=== PATIENT | female | born 1940 | race Caucasian/White ===

== ENCOUNTER 2020-04-09 08:37 | Outpatient (REF) | payer MEDICARE, SELFPAY ==
[2020-04-09 12:06] LABS: Alanine Aminotransferase 15 U/L (0-31); Anion Gap 15 (12-20); Aspartate Amino Transferase 22 U/L (5-31); Blood Urea Nitrogen 19 mg/dL (9-16); Calcium 9.6 mg/dL (8.4-10.2); Carbon Dioxide 26 mmol/L (22-29); Chloride 103 mmol/L (96-108); Cholesterol 174 mg/dL; Estimated Glomerular Filt Rate 56; Glucose Fasting 99 mg/dL (60-99); HDL Cholesterol 67 mg/dL; LDL Cholesterol Calculated 88 mg/dl; Potassium 3.5 mmol/L (3.3-5.1); Sodium 140 mmol/L (135-145); Triglycerides 97 mg/dL
[2020-04-09 12:13] LABS: Free T4 (Free Thyroxine) 1.14 ng/dL (0.71-1.85); Thyroid Stimulating Hormone 2.44 uIU/mL (0.32-4.0); Vitamin D 25-OH Total 63.5 ng/mL (>30)
== END 2020-04-09 08:38 | disposition home or self-care (01) ==
LOC: HO.HMGCLDS 08:37
PROVIDERS: PCP Internal Medicine; Visit Provider Internal Medicine
DX: E78.5 Hyperlipidemia, unspecified (principal); I10 Essential (primary) hypertension; E03.9 Hypothyroidism, unspecified; Z78.0 Asymptomatic menopausal state
CPT/HCPCS: 36415; 80048; 80061; 82306; 84439; 84443; 84450; 84460

== ENCOUNTER 2020-07-17 10:30 | Outpatient (REF) | payer MEDICARE, SELFPAY ==
[2020-07-17 12:20] LABS: Thyroid Stimulating Hormone 2.41 uIU/mL (0.32-4.0); Vitamin D 25-OH Total 57.2 ng/mL (>30)
[2020-07-17 12:57] LABS: Alanine Aminotransferase 11 U/L (0-31); Anion Gap 16 (12-20); Aspartate Amino Transferase 23 U/L (5-31); Blood Urea Nitrogen 20 mg/dL (9-16); Calcium 9.4 mg/dL (8.4-10.2); Carbon Dioxide 23 mmol/L (22-29); Chloride 104 mmol/L (96-108); Cholesterol 227 mg/dL; Estimated Glomerular Filt Rate 58; Glucose Fasting 90 mg/dL (60-99); HDL Cholesterol 91 mg/dL; LDL Cholesterol Calculated 113 mg/dl; Potassium 4.2 mmol/L (3.3-5.1); Sodium 139 mmol/L (135-145); Triglycerides 118 mg/dL
== END 2020-07-17 10:31 | disposition home or self-care (01) ==
LOC: HO.HMGCLDS 10:30
PROVIDERS: PCP Internal Medicine; Visit Provider Internal Medicine
DX: E03.9 Hypothyroidism, unspecified (principal); E78.5 Hyperlipidemia, unspecified; I10 Essential (primary) hypertension; Z78.0 Asymptomatic menopausal state
CPT/HCPCS: 36415; 80048; 80061; 82306; 84443; 84450; 84460

== ENCOUNTER 2020-09-09 09:11 | Outpatient (REF) | payer MEDICARE, SELFPAY | END 2020-09-09 09:12 | disposition home or self-care (01) | LOC: HO.LAB 09:11 | PROVIDERS: Visit Provider Nurse Practitioner Family | DX: L03.90 Cellulitis, unspecified (principal) | CPT/HCPCS: 87071; 87147; 87186; 87205 ==

== ENCOUNTER 2021-01-15 09:37 | Outpatient (REF) | payer MEDICARE, SELFPAY ==
[2021-01-15 12:12] LABS: Alanine Aminotransferase 18 U/L (0-31); Anion Gap 16 (12-20); Aspartate Amino Transferase 25 U/L (5-31); Blood Urea Nitrogen 17 mg/dL (9-16); Calcium 10.1 mg/dL (8.4-10.2); Carbon Dioxide 25 mmol/L (22-29); Chloride 104 mmol/L (96-108); Cholesterol 219 mg/dL; Estimated Glomerular Filt Rate 55; Glucose Fasting 105 mg/dL (60-99); HDL Cholesterol 86 mg/dL; LDL Cholesterol Calculated 110 mg/dl; Potassium 4.1 mmol/L (3.3-5.1); Sodium 141 mmol/L (135-145); Triglycerides 116 mg/dL
[2021-01-15 12:33] LABS: Free T4 (Free Thyroxine) 1.03 ng/dL (0.71-1.85); Thyroid Stimulating Hormone 2.89 uIU/mL (0.32-4.0); Vitamin D 25-OH Total 56.7 ng/mL (>30)
== END 2021-01-15 09:38 | disposition home or self-care (01) ==
LOC: HO.HMGCLDS 09:37
PROVIDERS: PCP Internal Medicine; Visit Provider Internal Medicine
DX: E03.9 Hypothyroidism, unspecified (principal); E78.5 Hyperlipidemia, unspecified; I10 Essential (primary) hypertension; M81.0 Age-related osteoporosis without current pathological fracture; Z78.0 Asymptomatic menopausal state
CPT/HCPCS: 36415; 80048; 80061; 82306; 84439; 84443; 84450; 84460

== ENCOUNTER 2021-07-20 09:43 | Outpatient (REF) | payer MEDICARE, SELFPAY ==
[2021-07-20 11:45] LABS: MANUAL DIFF FLAG NO
[2021-07-20 11:55] LABS: Basophils Absolute Auto 0.1 X10*3/uL (0.0-0.2); Eosinophils Absolute Auto 0.4 X10*3/uL (0.0-0.4); Eosinophils Percent Auto 3.6 % (0-4); Hemoglobin 14.2 g/dl (12.0-16.0); Imm Gran Abs Auto 0.04 X10*3/uL (0.00-0.03); Imm Gran Pct Auto 0.4 % (0.0-0.4); Lymphocytes Absolute Auto 2.2 X10*3/uL (1.2-4.9); Lymphocytes Percent Auto 21.8 % (20-40); Mean Corpuscular Volume 96.8 fL (80.0-98.0); Mean Platelet Volume 10.7 fL (9.4-12.3); Monocytes Absolute Auto 0.9 X10*3/uL (0.1-1.2); Monocytes Percent Auto 9.5 % (2-11); Neutrophils Absolute Auto 6.3 x10*3/uL (2.0-8.3); Neutrophils Percent Auto 63.7 % (45-73); Platelet Count 332 X10*3/uL (160-400); Red Blood Count 4.44 X10*6/uL (4.20-5.50); Red Cell Distribution Width 14.6 % (11.0-16.0); White Blood Count 9.9 X10*3/uL (4.8-10.8)
[2021-07-20 12:45] LABS: Alanine Aminotransferase 17 U/L (0-31); Anion Gap 16 (12-20); Aspartate Amino Transferase 23 U/L (5-31); Blood Urea Nitrogen 22 mg/dL (9-16); Calcium 9.8 mg/dL (8.4-10.2); Carbon Dioxide 22 mmol/L (22-29); Chloride 106 mmol/L (96-108); Cholesterol 231 mg/dL; Estimated Glomerular Filt Rate > 60; Glucose Fasting 95 mg/dL (60-99); HDL Cholesterol 84 mg/dL; LDL Cholesterol Calculated 127 mg/dl; Potassium 4.2 mmol/L (3.3-5.1); Sodium 140 mmol/L (135-145); Triglycerides 100 mg/dL
[2021-07-20 12:48] LABS: Free T4 (Free Thyroxine) 0.99 ng/dL (0.71-1.85); Vitamin D 25-OH Total 51.7 ng/mL (>30)
== END 2021-07-20 09:44 | disposition home or self-care (01) ==
LOC: HO.HMGCLDS 09:43
PROVIDERS: PCP Internal Medicine; Visit Provider Internal Medicine
DX: M81.0 Age-related osteoporosis without current pathological fracture (principal); I10 Essential (primary) hypertension; E78.5 Hyperlipidemia, unspecified; E03.9 Hypothyroidism, unspecified; F41.1 Generalized anxiety disorder; Z78.0 Asymptomatic menopausal state
CPT/HCPCS: 36415; 80048; 80061; 82306; 84439; 84443; 84450; 84460; 85025

== ENCOUNTER 2022-07-26 09:46 | Outpatient (REF) | payer MEDICARE, SELFPAY ==
[2022-07-26 12:28] LABS: Alanine Aminotransferase 12 U/L (0-31); Anion Gap 14 (12-20); Aspartate Amino Transferase 20 U/L (5-31); Blood Urea Nitrogen 24 mg/dL (9-16); Calcium 9.8 mg/dL (8.4-10.2); Carbon Dioxide 22 mmol/L (22-29); Chloride 106 mmol/L (96-108); Cholesterol 219 mg/dL; Estimated Glomerular Filt Rate > 60; Free T4 (Free Thyroxine) 1.04 ng/dL (0.71-1.85); Glucose Fasting 98 mg/dL (60-99); HDL Cholesterol 75 mg/dL; LDL Cholesterol Calculated 118 mg/dl; Potassium 3.7 mmol/L (3.3-5.1); Sodium 138 mmol/L (135-145); Thyroid Stimulating Hormone 3.04 uIU/mL (0.32-4.0); Triglycerides 130 mg/dL; Vitamin D 25-OH Total 88.4 ng/mL (>30)
== END 2022-07-26 09:47 | disposition home or self-care (01) ==
LOC: HO.HMGCLDS 09:46
PROVIDERS: PCP Internal Medicine; Visit Provider Internal Medicine
DX: M81.0 Age-related osteoporosis without current pathological fracture (principal); F41.1 Generalized anxiety disorder; Z78.0 Asymptomatic menopausal state; I10 Essential (primary) hypertension; E78.5 Hyperlipidemia, unspecified; E03.9 Hypothyroidism, unspecified
CPT/HCPCS: 36415; 80048; 80061; 82306; 84439; 84443; 84450; 84460

== ENCOUNTER 2022-08-30 10:22 | Outpatient (REF) | payer MEDICARE, SELFPAY ==
--- NOTE | ~2022-08-30 | MM_ITS ---
EXAMINATION: BONE DENSITOMETRY CLINICAL INDICATION: Age-related osteoporosis without current pathological fracture. COMPARISON: Baseline BD dated 04/26/2018. TECHNIQUE: Using a Aerospike DXA System (software version: 13.1) manufactured by [employer], dual-energy x-ray absorptiometry was performed of the lumbar spine and left hip. The images are of good technical quality. Summary results are attached. FINDINGS: AP SPINE L1-L4: Current: BMD 0.965 g/cm2, Z-score 0.3, T-score -1.8, osteopenia, 3.1% increase from baseline (<5% change is not significant). Baseline: BMD 0.936 g/cm2. LEFT FEMUR, NECK: Current: BMD 0.703 g/cm2, Z-score -0.1, T-score -2.4, osteopenia. Baseline: BMD 0.689 g/cm2. LEFT FEMUR, TOTAL: Current: BMD 0.765 g/cm2, Z-score 0.3, T-score -1.9, osteopenia, 3.1% increase from baseline (<5% change is not significant). Baseline: BMD 0.742 g/cm2. IDENTIFIED RISK FACTORS: Early menopause, secondary osteoporosis, osteoporosis. HISTORY OF FRACTURE: None listed. MEDICATIONS: Calcium supplements or multivitamin, vitamin D, ERT/SERMS. MM/XR DEXA axial skeleton IMPRESSION: 1. DIAGNOSIS: Osteopenia based on the lowest T-score value of -2.4 in the femoral neck applying World Health Organization criteria. 2. 10-YEAR FRACTURE RISK PREDICTION, FRAX: Not performed in this patient on estrogen or bone building treatments. 3. Treatment Recommendations: NOF guidelines recommend consideration for treatment in postmenopausal women and men age 50 and older presenting with the following: -A hip or vertebral (clinical or morphometric) fracture. -T-score less than or equal to -2.5 at the femoral neck or spine after appropriate evaluation to exclude secondary causes. -Low bone mass at the hip or spine and a 10-year fracture probability by FRAX of greater than or equal to 3% for hip fracture or greater than or equal to 20% for major osteoporotic fracture based on the [place] adapted WHO algorithm. 4. Other Recommendations: All treatment decisions require clinical judgment and consideration of individual patient factors, including patient preferences, comorbidities, previous drug use, risk factors not captured in the FRAX model (e.g. frailty, falls, vitamin D deficiency, increased bone turnover, interval significant decline in bone density) and possible under or overestimation of fracture risk by FRAX. Additional medical evaluation for secondary cause of low bone mineral density may be appropriate. FUTURE SCAN RECOMMENDATION: People with diagnosed cases of osteoporosis or at high risk for fracture should have regular bone mineral density tests. For patients eligible for Medicare, routine testing is allowed once every 2 years. The testing frequency can be increased to one year for patients who have rapidly progressing disease, those who are receiving or discontinuing medical therapy to restore bone mass, or have additional risk factors.
== END 2022-08-30 10:23 | disposition home or self-care (01) ==
LOC: HO.MAMMO 10:22
PROVIDERS: PCP Internal Medicine; Visit Provider Internal Medicine
DX: M81.0 Age-related osteoporosis without current pathological fracture (principal)
CPT/HCPCS: 77080

== ENCOUNTER 2023-01-05 09:08 | Outpatient (REF) | payer MEDICARE, SELFPAY ==
[2023-01-05 12:31] LABS: Alanine Aminotransferase 14 U/L (0-31); Anion Gap 16 (12-20); Aspartate Amino Transferase 23 U/L (5-31); Blood Urea Nitrogen 18 mg/dL (9-16); Calcium 9.8 mg/dL (8.4-10.2); Carbon Dioxide 24 mmol/L (22-29); Chloride 104 mmol/L (96-108); Cholesterol 220 mg/dL (<200); Estimated Glomerular Filt Rate > 60; Glucose Fasting 99 mg/dL (60-99); HDL Cholesterol 76 mg/dL (>40); LDL Cholesterol Calculated 116 mg/dL (<100); Potassium 3.9 mmol/L (3.3-5.1); Sodium 140 mmol/L (135-145); Triglycerides 143 mg/dL (<150)
[2023-01-05 12:53] LABS: Thyroid Stimulating Hormone 2.54 uIU/mL (0.32-4.0); Vitamin D 25-OH Total 77.1 ng/mL (>30)
== END 2023-01-05 09:09 | disposition home or self-care (01) ==
LOC: HO.HMGCLDS 09:08
PROVIDERS: PCP Internal Medicine; Visit Provider Internal Medicine
DX: M81.0 Age-related osteoporosis without current pathological fracture (principal); I10 Essential (primary) hypertension; E78.5 Hyperlipidemia, unspecified; E03.9 Hypothyroidism, unspecified; Z78.0 Asymptomatic menopausal state
CPT/HCPCS: 36415; 80048; 80061; 82306; 84443; 84450; 84460

== ENCOUNTER 2023-01-09 11:14 | Outpatient (AMB) | payer MEDICARE, SELFPAY ==
[2023-01-09 11:32] VITALS: BP 120/78; PULSE 95; O2SAT 98; BMI 23.4
--- NOTE | 2023-01-09 11:32 | MHC.PC.OV ---
Vital Signs 01/09/23 11:32 Height 5 ft 2 in Weight 128 lb 2 oz BMI 23.4 BP 120/78 Blood Pressure Location Lt brachial Position Sitting Pulse 95 Pulse Source Pulse Oximeter Pulse Oximetry (%) 98 Oxygen Delivery Method Room Air Intake Visit Reasons: 6 month follow up Intake Note: Pt is here to follow up for her lab results Allergies Corticosteroids (Glucocorticoids) Adverse Reaction (Verified 01/09/23 11:59) Rash bactrim Adverse Reaction (Uncoded 01/09/23 11:59) Rash Medication List - Last Reconciled 01/09/23 by Bettina Mckinney MD cholecalciferol (vitamin D3) 50 mcg PO DAILY diltiazem HCl 60 mg PO QID ketoconazole 2% 1 appl topical DAILY levothyroxine 25 mcg PO DAILY raloxifene 60 mg PO DAILY rosuvastatin 10 mg PO DAILY triamterene-hydrochlorothiazid 37.5-25 mg 1 tab PO QAM 90 days Tobacco use date assessed: 01/09/23 Fall risk assessment: No Falls in past year Last assessed Fall Risk: 01/09/23 Dental Screening Dental Screen Date: 01/09/23 Did you have a dental visit in the last 12 months?: Yes Did you have a dental problem in the last 6 months where you did not have access to dental care?: No Was dental information given to patient?: Patient has dentist HPI 6 month follow up HPI Details 82-year-old lady here today for follow-up on her lipids and hypothyroidism. Has been compliant with taking her medications and currently on rosuvastatin 10 mg daily and levothyroxine 25 mcg daily. Blood pressure stable controlled on diltiazem 60 mg 4 times a day and triamterene hydrochlorothiazide taken 1 day. COUNT INCLUDES THE [facility] Medical History Osteoporosis Generalized anxiety disorder Menopause Essential hypertension Dyslipidemia Acquired hypothyroidism Surgical History No pertinent past surgical history Social History Housing: House Alcohol intake: current Patient Tobacco Use Status: Never used Tobacco e-Cigarette/Vaping Use: Never Used Second Hand Smoke Exposure: No service: No Current occupational status: retired Cognitive needs: No Hearing needs: No Vision needs: No Questionnaire Thrive Questionnaire Date Thrive assessed: 07/27/21 ANGELIA-7 AMB Questionnaire ANGELIA-7 Date ANGELIA - 7 assessed: 07/27/21 Source: Developed by Drs. Alcides Keys, Rajani Patterson, Behzad Alvarado and colleagues, with an educational ernesto from [employer]. Review of Systems Const Denies body aches, Denies fatigue and Denies headache(s) Eyes Denies change in vision ENT Denies dizziness, Denies headache(s) and Denies nasal congestion Card Denies chest pain, Denies lightheadedness, Denies palpitations and Denies dyspnea Resp Denies chest congestion, Denies cough, Denies dyspnea and Denies wheezing GI Denies abdominal pain, Denies change in bowel habits and Denies heartburn Denies urinary frequency, Denies dysuria and Denies urinary urgency Musc Reports no additional complaints Skin/Breast Reports rash (Itchy rash in right forarm, appeared after receiving RSV vaccine) Neuro Denies dizziness and Denies headache(s) Psych Reports no additional complaints Endo Denies fatigue, Denies polydipsia, Denies polyuria and Denies palpitations Brigido/Lymph Denies easy bruising Aller/Immun Denies seasonal rhinorrhea and Denies wheezing Physical exam (Primary Care) Vital Signs: Last Vital Signs Pulse 95 01/09/23 11:32 BP 120/78 01/09/23 11:32 Pulse Ox 98 01/09/23 11:32 Oxygen Delivery Method Room Air 01/09/23 11:32 BMI result Body Mass Index 23.4 Tobacco/Smoking Status: Tobacco use Status Tobacco use date assessed 01/09/23 01/09/23 11:39 Patient Tobacco Use Status Never used Tobacco 01/09/23 11:33 e-Cigarette/Vaping Use Never Used 01/09/23 11:33 Thrive Assessment: Date of Thrive Assessment Date Thrive assessed 07/27/21 01/09/23 11:33 Const General: cooperative, comfortable and no acute distress Orientation/consciousness: patient oriented x3 HENMT Ears: external ears normal General nose exam: Normal external nose present Mouth: Normal oral and palatal mucosa present, oropharynx normal and moist mucous membranes Eyes General: appearance normal, both eyes and all related structures Neck Neck: Yes full ROM, Yes no lymphadenopathy and Yes supple Resp Effort & Inspection: normal respiratory effort and able to speak in complete sentences Auscultation: clear to auscultation bilaterally Cardio Rate: regular rate Rhythm: regular rhythm Heart sounds: S1 normal heart sound present and S2 normal heart sound present GI Inspection: Yes normal to inspection Palpation (GI): Soft to palpation, nontender and no masses Auscultation: normal bowel sounds Skin Other: Slightly raised erythematous patch right forearm Neuro General: patient oriented x3, gait normal, tone normal, moves all extremities, Normal light touch and pain sensation and no focal motor deficits Cognition (Neuro): normal cognition Gait exam (Neuro): Normal gait present Motor exam (neuro): 5/5 motor strength present throughout Extrem General: Yes full ROM, Yes no joint enlargement, Yes no pedal edema and Yes normal gait Results Reviewed Results Reviewed: ENTERED: 01/05/23 HODA KIM: ORDERED: Met Prof Fast, AST, ALT, Lipid Panel, Vitamin D 25-OH, TSH Test Result Flag Reference Site Sodium 140 135-145 mmol/L Potassium 3.9 3.3-5.1 mmol/L CL 104 96-108 mmol/L CO2 24 22-29 mmol/L Gap 16 12-20 BUN 18 H 9-16 mg/dL Creat 0.85 0.5-1.4 mg/dL EGFR > 60 NOTE: For -[place] individuals, multiply the result by 1.210. Chronic Kidney Disease: Estimated GFR < 60 mL/min/1.73m2 Severe Kidney Disease: Estimated GFR < 15 mL/min/1.73m2 FBS 99 60-99 mg/dL CA 9.8 8.4-10.2 mg/dL AST (GOT) 23 5-31 U/L ALT (GPT) 14 0-31 U/L Triglyceride 143 <150 mg/dL Desirable Triglyceride: less than 150 mg/dL Borderline High Triglyceride 150-199 mg/dL High Triglyceride: 200-499 mg/dL Very High Triglyceride: greater than or equal to 5OO mg/dL Cholesterol 220 H <200 mg/dL Desirable Cholesterol: less than 200 mg/dL Borderline High Cholesterol: 200-239 mg/dL High Cholesterol: greater than 239 mg/dL LDL Calculated 116 H <100 mg/dL Desirable LDL: less than 100 mg/dL Near Optimal/Above Optimal LDL: 110-129 mg/dL Borderline High LDL: 130-159 mg/dL High LDL: 160-189 mg/dL Very High LDL: greater than or equal to 190 mg/dL HDL 76 >40 mg/dL Desirable HDL: greater than 40 mg/dL Note: This HDL assay may give artificially low results in patients with liver disease. Vit D 25-OH Tot 77.1 >30 ng/mL Health Based Reference Values* < 20 ng/mL Deficient 20-30 ng/mL Insufficient > 30 ng/mL Sufficient *Joy COLBERT. N Engl J Med. 2007;[id number] Care must be taken in interpreting Vitamin D results from different laboratories and methodologies. Published data demonstrated that results from patients undergoing hemodialysis may show a negative bias when tested with various automated 25-OH vitamin D assays when compared to LC-MS/MS. When testing samples from patients whose predominant form of Vitamin D is Vitamin D2, such as patients receiving Vitamin D2 supplementation, results that are subtherapeutic should be confirmed with another method such as LC-MS/MS. TSH 3rd Gen. 2.54 0.32-4.0 uIU/mL TSH 3rd Generation ([facility]) Assessment and Plan Assessment & Plan (1) Pruritic erythematous rash: Code(s): L29.8 - Other pruritus Plan: Mainly in right forearm. Patient's states that it began after she received her RSV vaccine gold Tilley cream which affords only temporary relief. Advised to use CeraVe cream, which she has at home apply liberally to affected area after showering and at bedtime. She may also try using [id number] diphenhydramine cream to help with the itching there (2) Generalized anxiety disorder: Code(s): F41.1 - Generalized anxiety disorder Plan: Stable controlled on diazepam, takes as needed (3) Essential hypertension: Code(s): I10 - Essential (primary) hypertension Plan: Blood pressure at goal of less than 130/80. Continue with current medication. Reinforced importance of following a low sodium diet, getting regular exercise, and lowering stress levels. (4) Dyslipidemia: Code(s): E78.5 - Hyperlipidemia, unspecified Plan: Fasting lipids are within normal limits, continued on rosuvastatin 10 mg daily (5) Acquired hypothyroidism: Code(s): E03.9 - Hypothyroidism, unspecified Plan: Thyroid levels are within normal limits, continue on levothyroxine 25 mcg daily in a.m. Medications: New diazepam (Valium) 2 mg PO DAILY PRN 20 tabs 0RF anxiey attack Coding Level of Care Code Est Pt Level 4 (71482) Diagnoses Pruritic erythematous rash L29.8 Generalized anxiety disorder F41.1 Essential hypertension I10 Dyslipidemia E78.5 Acquired hypothyroidism E03.9
== END 2023-01-09 12:15 | disposition home or self-care (01) ==
PROVIDERS: PCP Internal Medicine; Visit Provider Internal Medicine
DX: L29.8 Other pruritus (principal); F41.1 Generalized anxiety disorder; I10 Essential (primary) hypertension; E78.5 Hyperlipidemia, unspecified; E03.9 Hypothyroidism, unspecified
CPT/HCPCS: 99214

== ENCOUNTER 2023-10-16 09:03 | Outpatient (REF) | payer MEDICARE, SELFPAY ==
[2023-10-16 11:17] LABS: Alanine Aminotransferase 16 U/L (0-31); Anion Gap 15 (12-20); Aspartate Amino Transferase 20 U/L (5-31); Blood Urea Nitrogen 23 mg/dL (9-16); Calcium 10.3 mg/dL (8.4-10.2); Carbon Dioxide 25 mmol/L (22-29); Chloride 102 mmol/L (96-108); Cholesterol 213 mg/dL (<200); Estimated Glomerular Filt Rate > 60; Free T4 (Free Thyroxine) 0.97 ng/dL (0.71-1.85); Glucose Fasting 102 mg/dL (60-99); HDL Cholesterol 85 mg/dL (>40); LDL Cholesterol Calculated 109 mg/dL (<100); Potassium 3.6 mmol/L (3.3-5.1); Sodium 138 mmol/L (135-145); Thyroid Stimulating Hormone 2.37 uIU/mL (0.32-4.0); Triglycerides 97 mg/dL (<150); Vitamin D 25-OH Total 74.9 ng/mL (>30)
== END 2023-10-16 09:04 | disposition home or self-care (01) ==
LOC: HO.HMGCLDS 09:03
PROVIDERS: PCP Internal Medicine; Visit Provider Internal Medicine
DX: M81.0 Age-related osteoporosis without current pathological fracture (principal); F41.1 Generalized anxiety disorder; Z78.0 Asymptomatic menopausal state; I10 Essential (primary) hypertension; E78.5 Hyperlipidemia, unspecified; E03.9 Hypothyroidism, unspecified
CPT/HCPCS: 36415; 80048; 80061; 82306; 84439; 84443; 84450; 84460

== ENCOUNTER 2023-10-19 08:40 | Outpatient (AMB) | payer MEDICARE, SELFPAY ==
--- NOTE | 2023-10-19 08:44 | MHC.PC.OV ---
Vital Signs 10/19/23 08:50 Height 5 ft 2 in Weight 116 lb BMI 21.2 BP 112/70 Blood Pressure Location Lt brachial Position Sitting Pulse 82 Pulse Source Pulse Oximeter Pulse Oximetry (%) 98 Oxygen Delivery Method Room Air Intake Visit Reasons: PE Intake Note: Pt is here today for her PE: last mammogram 08/30/22 Allergies Corticosteroids (Glucocorticoids) Adverse Reaction (Verified 10/22/23 16:27) Rash bactrim Adverse Reaction (Uncoded 10/22/23 16:27) Rash Medication List - Last Reconciled 10/22/23 by Bettina Mckinney MD cholecalciferol (vitamin D3) 50 mcg PO DAILY diazepam (Valium) 2 mg PO DAILY PRN diltiazem HCl 60 mg PO QID levothyroxine 25 mcg PO DAILY raloxifene 60 mg PO DAILY rosuvastatin 10 mg PO DAILY triamterene-hydrochlorothiazid 37.5-25 mg 1 tab PO QAM 90 days Tobacco use date assessed: 10/19/23 Fall risk assessment: No Falls in past year Last assessed Fall Risk: 10/19/23 Dental Screening Dental Screen Date: 10/19/23 Did you have a dental visit in the last 12 months?: Yes Did you have a dental problem in the last 6 months where you did not have access to dental care?: No Was dental information given to patient?: Patient has dentist HPI PE HPI Details 82-year-old lady with acquired hypothyroidism, hyperlipidemia, hypertension and osteoporosis with generalized anxiety disorder, here today for her physical exam. Blood pressure has been stable and controlled on diltiazem 60 mg 1 tablet 4 times a day in addition to Maxzide taken 1 daily in a.m.. She has been taking raloxifene 60 mg daily for her osteoporosis, no history of fractures. Last bone density done 08/25/2022 showed mild increase in her bone density in femoral neck, and lumbar spine She no longer gets screening mammograms for her cervical cancer screening and does not want to get a colonoscopy procedure or any further colon cancer testing. She had recent fasting labs done which showed normal electrolytes and renal function, with lipids within normal limits as well as thyroid levels and mildly elevated fasting glucose. Complains of having intermittent episodes of anxiety attacks, for which he takes lorazepam 1-2 mg as needed requesting a refill [facility] Medical History Osteoporosis Generalized anxiety disorder Menopause Essential hypertension Dyslipidemia Acquired hypothyroidism Surgical History No pertinent past surgical history Social History Housing: House Alcohol intake: current Patient Tobacco Use Status: Never used Tobacco e-Cigarette/Vaping Use: Never Used Second Hand Smoke Exposure: No service: No Current occupational status: retired Cognitive needs: No Hearing needs: No Vision needs: No Questionnaire PHQ-9 Over the last 2 weeks, how often have you been bothered by any of the following problems? 1. Little interest or pleasure in doing things: not at all 2. Feeling down, depressed, or hopeless: not at all 3. Trouble falling or staying asleep, or sleeping too much: not at all 4. Feeling tired or having little energy: not at all 5. Poor appetite or overeating: not at all 6. Feeling bad about yourself - or that you are a failure or have let yourself or your family down: not at all 7. Trouble concentrating on things, such as reading the newspaper or watching television: not at all 8. Moving or speaking so slowly that other people could have noticed. Or the opposite - being so fidgety or restless that you have been moving around a lot more than usual: not at all 9. Thoughts that you would be better off or of hurting yourself in some way: not at all Total score: 0 Depression Screening Interpretation: Negative Depression Screening Done: Yes 70829 - PHQ-9 Billing: Yes Source: Developed by Drs. Alcides Keys, Rajani Patterson, Behzad Alvarado and colleagues, with an educational ernesto from [employer]. Thrive Questionnaire Date Thrive assessed: 10/19/23 I am a: Patient What is your living situation today?: I have a steady place to live Within the past 12 months, did the food you bought not last and you didn't have the money to get more?: Never true Within the past 12 months, did you worry whether your food would run out before you got money to buy more?: Never true Do you have trouble paying for medicines?: No Do you have trouble getting transportation to medical appointments?: No Do you have trouble paying your heating and electricity bill?: No Do you have trouble taking care of your child, family member or friend?: No Do you have trouble with day-to-day activities such as bathing, preparing meals, shopping, managing finances, etc.?: No Are you currently unemployed and looking for a job?: No Are you interested in more education?: No Please select the resources that you would like help with: None Currently or been in a relationship where the following occur: No concerns reported THRIVE Score: 0 AUDIT C Alcohol Use Questionnaire (AUDIT-C) 1. How often do you have a drink containing alcohol?: Never Total Score: 0 ANGELIA-7 AMB Questionnaire ANGELIA-7 Date ANGELIA - 7 assessed: 10/19/23 Feeling nervous, anxious, or on edge: 1 = Several days Not being able to stop or control worryin = Several days Worrying too much about different things: 1 = Several days Trouble relaxin = Several days Being so restless that it is hard to sit still: 0 = Not at all Becoming easily annoyed or irritable: 0 = Not at all Feeling afraid as if something awful might happen: 0 = Not at all Total ANGELIA-7 score (0-4 normal; 5-9 mild; 10-14 moderate; 15-21 severe): 4 Source: Developed by Drs. Alcides Keys, Rajani Patterson, Behzad Alvarado and colleagues, with an educational ernesto from [employer]. ANGELIA-7 Assessment Billing ANGELIA-7 Assessment Tool: ANGELIA-7 Assessment 53832 Review of Systems Const Denies body aches, Denies fatigue and Denies headache(s) Eyes Denies change in vision ENT Denies dizziness, Denies headache(s) and Denies nasal congestion Card Denies chest pain, Denies lightheadedness, Denies palpitations and Denies dyspnea Resp Denies chest congestion, Denies cough, Denies dyspnea and Denies wheezing GI Denies abdominal pain, Denies change in bowel habits and Denies heartburn Denies urinary frequency, Denies dysuria and Denies urinary urgency Musc Reports no additional complaints Skin/Breast Denies lesions and Denies rash Neuro Denies dizziness and Denies headache(s) Psych Reports as per HPI Endo Denies fatigue, Denies polydipsia, Denies polyuria and Denies palpitations Brigido/Lymph Denies easy bruising Aller/Immun Denies seasonal rhinorrhea and Denies wheezing Physical exam (Primary Care) Vital Signs: Last Vital Signs Pulse 82 10/19/23 08:50 BP 112/70 10/19/23 08:50 Pulse Ox 98 10/19/23 08:50 Oxygen Delivery Method Room Air 10/19/23 08:50 BMI result Body Mass Index 21.2 Tobacco/Smoking Status: Tobacco use Status Tobacco use date assessed 10/19/23 10/19/23 08:52 Patient Tobacco Use Status Never used Tobacco 10/19/23 08:46 e-Cigarette/Vaping Use Never Used 10/19/23 08:46 PHQ-9: PHQ-9 Score PHQ-9: Total score 0 10/19/23 09:29 Depression Screening Interpretation: Negative Thrive Assessment: Date of Thrive Assessment Date Thrive assessed 07/27/21 10/19/23 08:46 Currently or been in a relationship where the following occur: No concerns reported Const General: cooperative, comfortable and no acute distress Orientation/consciousness: patient oriented x3 HENMT Ears: external ears normal General nose exam: Normal external nose present Mouth: Normal oral and palatal mucosa present, oropharynx normal and moist mucous membranes Eyes General: appearance normal, both eyes and all related structures Neck Neck: Yes full ROM, Yes no lymphadenopathy and Yes supple Resp Effort & Inspection: normal respiratory effort and able to speak in complete sentences Auscultation: clear to auscultation bilaterally Cardio Rate: regular rate Rhythm: regular rhythm Heart sounds: S1 normal heart sound present and S2 normal heart sound present GI Inspection: Yes normal to inspection Palpation (GI): Soft to palpation, nontender and no masses Auscultation: normal bowel sounds Back/Spine/Pelvis Back: No back tenderness Skin Other: General skin exam: no rashes or lesions noted Neuro General: patient oriented x3, gait normal, tone normal, moves all extremities, Normal light touch and pain sensation and no focal motor deficits Cognition (Neuro): normal cognition Gait exam (Neuro): Normal gait present Motor exam (neuro): 5/5 motor strength present throughout Extrem General: Yes full ROM, Yes no joint enlargement, Yes no pedal edema and Yes normal gait Psych Appearance: grossly normal and well kempt Mental Status: mental status grossly normal Speech and movement: Normal speech and movement present Affect: normal affect Attitude: cooperative Results Reviewed Results Reviewed: jolynn: Betzaida Oliveira Age/Sex: 82/F : 1940 [address]#: [id number] Unit#: [id number] Attend Dr: Bettina Mckinney MD Re10/16/23 Status: DEP REF Location: [facility] Disch: SPEC : [id number] AVIVA: 10/16/23 STATUS: COMP REQ : [id number] RECD: 10/16/[address]: Bettina Mckinney MD COMP: 10/16/23 ENTERED: 10/16/[address] [facility] [address]: ORDERED: Met Prof Fast, AST, ALT, Lipid Panel, Vitamin D 25-OH, Free T4, TSH Test Result Flag Reference Sodium 138 135-145 mmol/L Potassium 3.6 3.3-5.1 mmol/L CL 102 96-108 mmol/L CO2 25 22-29 mmol/L Gap 15 12-20 BUN 23 H 9-16 mg/dL Creat 0.82 0.5-1.4 mg/dL EGFR > 60 NOTE: For -[place]ian individuals, multiply the result by 1.210. Chronic Kidney Disease: Estimated GFR < 60 mL/min/1.73m2 Severe Kidney Disease: Estimated GFR < 15 mL/min/1.73m2 FBS 102 H 60-99 mg/dL A fasting glucose from 100-125 mg/dl is considered impaired (pre-diabetes). CA 10.3 H 8.4-10.2 mg/dL AST (GOT) 20 5-31 U/L ALT (GPT) 16 0-31 U/L Triglyceride 97 <150 mg/dL Desirable Triglyceride: less than 150 mg/dL Borderline High Triglyceride 150-199 mg/dL High Triglyceride: 200-499 mg/dL Very High Triglyceride: greater than or equal to 5OO mg/dL Cholesterol 213 H <200 mg/dL Desirable Cholesterol: less than 200 mg/dL Borderline High Cholesterol: 200-239 mg/dL High Cholesterol: greater than 239 mg/dL LDL Calculated 109 H <100 mg/dL Desirable LDL: less than 100 mg/dL Near Optimal/Above Optimal LDL: 110-129 mg/dL Borderline High LDL: 130-159 mg/dL High LDL: 160-189 mg/dL Very High LDL: greater than or equal to 190 mg/dL HDL 85 >40 mg/dL Desirable HDL: greater than 40 mg/dL Note: This HDL assay may give artificially low results in patients with liver disease. Vit D 25-OH Tot 74.9 >30 ng/mL Health Based Reference Values* < 20 ng/mL Deficient 20-30 ng/mL Insufficient > 30 ng/mL Sufficient *Joy COLBERT. N Engl J Med. 2007;357:266-280 Care must be taken in interpreting Vitamin D results from different laboratories and methodologies. Published data demonstrated that results from patients undergoing hemodialysis may show a negative bias when tested with various automated 25-OH vitamin D assays when compared to LC-MS/MS. When testing samples from patients whose predominant form of Vitamin D is Vitamin D2, such as patients receiving Vitamin D2 supplementation, results that are subtherapeutic should be confirmed with another method such as LC-MS/MS. Free T4 0.97 0.71-1.85 ng/dL TSH 3rd Gen. 2.37 0.32-4.0 uIU/mL TSH 3rd Generation ([facility]) END OF REPORT Assessment and Plan Assessment & Plan (1) Annual visit for general adult medical examination with abnormal findings: Code(s): Z00.01 - Encounter for general adult medical examination with abnormal findings Plan: Reviewed recent fasting lab results with patient. Continue with regular dental visit every 6 months and regular eye exams, at least every 2 years. Take adequate calcium in diet and vitamin-D 3 at 2000 IU per cap once a day, in addition to weight-bearing exercises to help maintain good muscle tone and weight control. Up-to-date with her bone density scan.. Patient states she will be getting her COVID booster and her flu shot but does not want to get any pneumonia vaccination RSV or shingles vaccine. (2) Osteoporosis: Code(s): M81.0 - Age-related osteoporosis without current pathological fracture (3) Generalized anxiety disorder: Code(s): F41.1 - Generalized anxiety disorder Plan: Refill prescription sent for diazepam 2 mg per tablet, take 1 tablet as needed only for acute anxiety attacks. (4) Essential hypertension: Code(s): I10 - Essential (primary) hypertension Plan: Blood pressure at goal of less than 130/80. Continue with current medication. Reinforced importance of following a low sodium diet, getting regular exercise, and lowering stress levels. (5) Dyslipidemia: Code(s): E78.5 - Hyperlipidemia, unspecified Plan: Reviewed recent fasting lipid profile with patient with levels within normal limit . Continue rosuvastatin 10 mg daily , in addition to adherence to low-cholesterol diet and regular exercise, at least 30 minutes 3 to 4 times a week. Advised patient to make healthy food choices, eat more fruits, vegetables, whole grains, wild caught fish and low-fat dairy. Limit amount of meat and fried or fatty food products, as well as processed foods and fast foods. (6) Acquired hypothyroidism: Code(s): E03.9 - Hypothyroidism, unspecified Plan: Thyroid levels are within normal limits, continue with levothyroxine 25 mcg daily in a.m. Medications: Refilled diazepam (Valium) 2 mg PO DAILY PRN 30 tabs 0RF anxiey attack Coding Level of Care Code Est Pt Prev Care >65y(23698) Diagnoses Annual visit for general adult medical examination with abnormal findings Z00.01 Osteoporosis M81.0 Generalized anxiety disorder F41.1 Essential hypertension I10 Dyslipidemia E78.5 Acquired hypothyroidism E03.9 Additional Codes ANGELIA-7 Assessment Billing - ANGELIA-7 Assessment Tool: ANGELIA-7 Assessment 72416 ([id number])
[2023-10-19 08:50] VITALS: BP 112/70; PULSE 82; O2SAT 98; BMI 21.2
== END 2023-10-19 09:34 | disposition home or self-care (01) ==
PROVIDERS: PCP Internal Medicine; Visit Provider Internal Medicine
DX: Z00.00 Encounter for general adult medical examination without abnormal findings (principal); M81.0 Age-related osteoporosis without current pathological fracture; F41.1 Generalized anxiety disorder; I10 Essential (primary) hypertension; E78.5 Hyperlipidemia, unspecified; E03.9 Hypothyroidism, unspecified
CPT/HCPCS: 99397

== ENCOUNTER 2023-12-19 10:24 | Outpatient (AMB) | payer MEDICARE, SELFPAY ==
--- NOTE | 2023-12-19 11:42 | AM.OFFWIN_ITS ---
Intake Vital Signs 12/19/23 11:43 Height 5 ft 2 in Weight 115 lb BMI 21.0 BP 124/80 Blood Pressure Location Lt brachial Position Sitting Pulse 88 Pulse Source Pulse Oximeter Pulse Oximetry (%) 98 Oxygen Delivery Method Room Air Intake Visit Reasons: EP Mid upper back pain Intake Note: Patient here for mid back pain that has been present for about 2 weeks now. Patient Tobacco Use Status: Never used Tobacco Allergies Corticosteroids (Glucocorticoids) Adverse Reaction (Verified 12/19/23 11:44) Rash bactrim Adverse Reaction (Uncoded 12/19/23 11:44) Rash Do you need a note to return to daycare/school/sports/work: No HPI HPI Comments History of Present Illness Details 83 y/o female patient who presents to [facility] walk [facility] clinic with c/o upper left Thoracic back region pain x 3 weeks now. She was lifting a Glossary bag from the ground and felt a sharp/pop pain. Denies falling on the ground. [facility] Medical History Osteoporosis Generalized anxiety disorder Menopause Essential hypertension Dyslipidemia Acquired hypothyroidism Surgical History No pertinent past surgical history Social History Housing: House Alcohol intake: current Patient Tobacco Use Status: Never used Tobacco e-Cigarette/Vaping Use: Never Used Second Hand Smoke Exposure: No service: No Current occupational status: retired Cognitive needs: No Hearing needs: No Vision needs: No Review of Systems Const All systems reviewed & are unremarkable except as noted in HPI and below Physical Exam Vital Signs: Last Vital Signs Pulse 88 12/19/23 11:43 BP 124/80 12/19/23 11:43 Pulse Ox 98 12/19/23 11:43 Oxygen Delivery Method Room Air 12/19/23 11:43 BMI result Body Mass Index 21.0 Const General: cooperative and no acute distress Orientation/consciousness: patient oriented x3 General: Yes no CVA tenderness Back/Spine/Pelvis Back: no CVA tenderness Cervical Spine: cervical ROM normal Thoracic/Lumbar Spine: thoracic and lumbar spine normal to inspection, thoraco- lumbar ROM normal, paraspinal muscle tenderness, thoraco-lumbar spasm and thoracic spinal tenderness Neuro General: patient oriented x3, gait normal and moves all extremities Psych Speech and movement: Normal speech and movement present Assessment & Plan Assessment & Plan (1) Upper back pain: Code(s): M54.9 - Dorsalgia, unspecified Plan: Ordered Acetaminophen 2 tabs of 650 mg in the AM' Ordered Lidocaine Patch IceHot Small dose of Flexeril 5 mg at Bedtime. Medications: New acetaminophen ER 1,300 mg (2 x 650 mg) PO Q12H PRN 60 tabs 0RF pain (scale score 4-6) M54.9 - Dorsalgia, unspecified cyclobenzaprine 5 mg PO BEDTIME 10 tabs 0RF M54.9 - Dorsalgia, unspecified lidocaine 5% leave on most painful area for up to 12 hrs 1 patch topical DAILY 30 ea 1RF M54.9 - Dorsalgia, unspecified Coding Level of Care Code Est Pt Level 3 (20292) Diagnoses Upper back pain M54.9 Time Spent (min) 15
[2023-12-19 11:43] VITALS: BP 124/80; PULSE 88; O2SAT 98; BMI 21.0
== END 2023-12-19 12:07 | disposition home or self-care (01) ==
PROVIDERS: PCP Internal Medicine; Visit Provider Nurse Practitioner Family
DX: M54.9 Dorsalgia, unspecified (principal)

== ENCOUNTER → 2023-12-19 10:24 | Outpatient (BNVA) | payer MEDICARE, SELFPAY | PROVIDERS: PCP Internal Medicine; Visit Provider Nurse Practitioner Family | DX: M54.9 Dorsalgia, unspecified (principal) | CPT/HCPCS: 99212 ==

== ENCOUNTER 2024-11-01 09:18 | Outpatient (REF) | payer MEDICARE, SELFPAY ==
[2024-11-01 11:37] LABS: Alanine Aminotransferase 21 U/L (0-31); Anion Gap 11 (12-20); Aspartate Amino Transferase 28 U/L (5-31); Blood Urea Nitrogen 16 mg/dL (9-16); Calcium 9.6 mg/dL (8.4-10.2); Carbon Dioxide 28 mmol/L (22-29); Chloride 104 mmol/L (96-108); Cholesterol 203 mg/dL (<200); Estimated Glomerular Filt Rate > 60; Free T4 (Free Thyroxine) 1.12 ng/dL (0.71-1.85); HDL Cholesterol 84 mg/dL (>40); Potassium 3.9 mmol/L (3.3-5.1); Sodium 139 mmol/L (135-145); Thyroid Stimulating Hormone 1.68 uIU/mL (0.32-4.0); Triglycerides 92 mg/dL (<150)
[2024-11-04 17:38] LABS: Calcium, Ionized 5.3 mg/dL (4.7-5.5)
== END 2024-11-01 09:19 | disposition home or self-care (01) ==
LOC: HO.HMGCLDS 09:18
PROVIDERS: PCP Internal Medicine; Visit Provider Internal Medicine
DX: I10 Essential (primary) hypertension (principal); M81.0 Age-related osteoporosis without current pathological fracture; F41.1 Generalized anxiety disorder; E78.5 Hyperlipidemia, unspecified; E03.9 Hypothyroidism, unspecified; E83.52 Hypercalcemia; Z78.0 Asymptomatic menopausal state
CPT/HCPCS: 36415; 80048; 80061; 82330; 84439; 84443; 84450; 84460

== ENCOUNTER 2024-11-05 08:38 | Outpatient (AMB) | payer MEDICARE, SELFPAY ==
[2024-11-05 09:28] VITALS: BP 122/64; PULSE 78; O2SAT 97; BMI 20.1
--- NOTE | 2024-11-05 09:28 | MHC.PC.OV ---
Vital Signs 11/05/24 09:28 Height 5 ft 2 in Weight 110 lb BMI 20.1 BP 122/64 Blood Pressure Location Lt brachial Position Sitting Pulse 78 Pulse Source Pulse Oximeter Pulse Oximetry (%) 97 Oxygen Delivery Method Room Air Intake Visit Reasons: Annual PE - see comments Allergies Corticosteroids (Glucocorticoids) Adverse Reaction (Verified 11/05/24 09:49) Rash bactrim Adverse Reaction (Uncoded 11/05/24 09:49) Rash Medication List - Last Reconciled 11/05/24 by Bettina Mckinney MD cholecalciferol (vitamin D3) 50 mcg PO DAILY diazepam (Valium) 2 mg PO DAILY PRN diltiazem HCl 60 mg PO QID levothyroxine 25 mcg PO DAILY raloxifene 60 mg PO DAILY rosuvastatin 10 mg PO DAILY triamterene-hydrochlorothiazid 37.5-25 mg 1 tab PO QAM 90 days Tobacco use date assessed: 11/05/24 Fall risk assessment: No Falls in past year Last assessed Fall Risk: 11/05/24 Dental Screening Dental Screen Date: 11/05/24 Did you have a dental visit in the last 12 months?: Yes Did you have a dental problem in the last 6 months where you did not have access to dental care?: No Was dental information given to patient?: Patient has dentist HPI Annual PE - see comments HPI Details The patient is an 83-year-old female presenting for her physical exam The patient has a history of osteoporosis with bone density tests showing some bone thinning, but recent improvements were noted in spine and left thigh bone density. She continues with weight-bearing exercises and vitamin D supplementation to manage this condition. She no longer gets screening mammograms The patient has hyperlipidemia, with cholesterol levels decreasing from 213 to 203 mg/dL. She is stable on rosuvastatin, tolerating medication well Has hypothyroidism currently stable and controlled on levothyroxine 25 mcg daily with latest thyroid levels within normal limits. Hypertension stable and controlled on diltiazem and Maxzide. The patient experiences anxiety, particularly at night, which is managed with diazepam as needed. She reports difficulty returning to sleep after waking up at night, which contributes to her insomnia. The patient maintains her dental health with regular visits to a research compliance specialist every three months due to mild gum disease. She practices diligent oral hygiene [facility] Medical History (Updated 11/05/24 @ 10:02 by Bettina Mckinney MD) Osteopenia of multiple sites Osteoporosis Generalized anxiety disorder Menopause Essential hypertension Dyslipidemia Acquired hypothyroidism Surgical History No pertinent past surgical history Social History Housing: House Alcohol intake: current Patient Tobacco Use Status: Never used Tobacco e-Cigarette/Vaping Use: Never Used Second Hand Smoke Exposure: No service: No Current occupational status: retired Cognitive needs: No Hearing needs: No Vision needs: No Questionnaire PHQ-9 Over the last 2 weeks, how often have you been bothered by any of the following problems? 1. Little interest or pleasure in doing things: not at all 2. Feeling down, depressed, or hopeless: not at all 3. Trouble falling or staying asleep, or sleeping too much: not at all 4. Feeling tired or having little energy: not at all 5. Poor appetite or overeating: not at all 6. Feeling bad about yourself - or that you are a failure or have let yourself or your family down: not at all 7. Trouble concentrating on things, such as reading the newspaper or watching television: not at all 8. Moving or speaking so slowly that other people could have noticed. Or the opposite - being so fidgety or restless that you have been moving around a lot more than usual: not at all 9. Thoughts that you would be better off or of hurting yourself in some way: not at all Total score: 0 Depression Screening Interpretation: Negative Depression Screening Done: Yes 60771 - PHQ-9 Billing: Yes Source: Developed by Drs. Alcides Keys, Rajani Patterson, Behzad Alvarado and colleagues, with an educational ernesto from [employer]. Thrive Questionnaire Date Thrive assessed: 11/05/24 I am a: Patient What is your living situation today?: I have a steady place to live Within the past 12 months, did the food you bought not last and you didn't have the money to get more?: Never true Within the past 12 months, did you worry whether your food would run out before you got money to buy more?: Never true Do you have trouble paying for medicines?: No Do you have trouble getting transportation to medical appointments?: No Do you have trouble paying your heating and electricity bill?: No Do you have trouble taking care of your child, family member or friend?: No Do you have trouble with day-to-day activities such as bathing, preparing meals, shopping, managing finances, etc.?: No Are you currently unemployed and looking for a job?: No Are you interested in more education?: No Please select the resources that you would like help with: None Currently or been in a relationship where the following occur: No concerns reported THRIVE Score: 0 AUDIT C Alcohol Use Questionnaire (AUDIT-C) 1. How often do you have a drink containing alcohol?: Never 3. How often do you have six or more drinks on one occasion?: Never Total Score: 0 Score Reviewed/Action Taken: Yes ANGELIA-7 AMB Questionnaire ANGELIA-7 Date ANGELIA - 7 assessed: 11/05/24 Feeling nervous, anxious, or on edge: 1 = Several days Not being able to stop or control worryin = Several days Worrying too much about different things: 1 = Several days Trouble relaxin = Several days Being so restless that it is hard to sit still: 0 = Not at all Becoming easily annoyed or irritable: 0 = Not at all Feeling afraid as if something awful might happen: 0 = Not at all Total ANGELIA-7 score (0-4 normal; 5-9 mild; 10-14 moderate; 15-21 severe): 4 Source: Developed by Drs. Alcides Keys, Rajani Patterson, Behzad Alvarado and colleagues, with an educational ernesto from [employer]. ANGELIA-7 Assessment Billing ANGELIA-7 Assessment Tool: ANGELIA-7 Assessment 63343 Review of Systems Const Denies body aches, Denies fatigue and Denies headache(s) Eyes Denies change in vision ENT Denies dizziness, Denies headache(s) and Denies nasal congestion Card Denies chest pain, Denies lightheadedness, Denies palpitations and Denies dyspnea Resp Denies chest congestion, Denies cough, Denies dyspnea and Denies wheezing GI Denies abdominal pain, Denies change in bowel habits and Denies heartburn Denies urinary frequency, Denies dysuria and Denies urinary urgency Musc Reports no additional complaints Skin/Breast Denies lesions and Denies rash Neuro Denies dizziness and Denies headache(s) Psych Reports no additional complaints Endo Denies fatigue, Denies polydipsia, Denies polyuria and Denies palpitations Brigido/Lymph Denies easy bruising Aller/Immun Denies seasonal rhinorrhea and Denies wheezing Physical exam (Primary Care) Vital Signs: Last Vital Signs Pulse 78 11/05/24 09:28 BP 122/64 11/05/24 09:28 Pulse Ox 97 11/05/24 09:28 Oxygen Delivery Method Room Air 11/05/24 09:28 BMI result Body Mass Index 20.1 Tobacco/Smoking Status: Tobacco use Status Tobacco use date assessed 11/05/24 11/05/24 09:32 Patient Tobacco Use Status Never used Tobacco 11/05/24 09:32 e-Cigarette/Vaping Use Never Used 11/05/24 09:32 PHQ-9: PHQ-9 Score PHQ-9: Total score 0 11/05/24 10:02 Depression Screening Interpretation: Negative Thrive Assessment: Date of Thrive Assessment Date Thrive assessed 11/05/24 11/05/24 09:32 Currently or been in a relationship where the following occur: No concerns reported Const General: no acute distress Orientation/consciousness: patient oriented x3 HENMT Ears: external ears normal General nose exam: Normal external nose present Mouth: Normal oral and palatal mucosa present, oropharynx normal and moist mucous membranes Eyes General: appearance normal, both eyes and all related structures Neck Neck: Yes full ROM, Yes no lymphadenopathy and Yes supple Resp Effort & Inspection: normal respiratory effort and able to speak in complete sentences Auscultation: clear to auscultation bilaterally Cardio Rate: regular rate Rhythm: regular rhythm Heart sounds: S1 normal heart sound present and S2 normal heart sound present GI Inspection: Yes normal to inspection Palpation (GI): Soft to palpation, nontender and no masses Auscultation: normal bowel sounds Back/Spine/Pelvis Back: No back tenderness Skin Other: General skin exam: no rashes or lesions noted Neuro General: patient oriented x3, gait normal, tone normal, moves all extremities, Normal light touch and pain sensation and no focal motor deficits Cognition (Neuro): normal cognition Gait exam (Neuro): Normal gait present Motor exam (neuro): 5/5 motor strength present throughout Extrem General: Yes full ROM, Yes no joint enlargement, Yes no pedal edema and Yes normal gait Psych Appearance: grossly normal and well kempt Mental Status: mental status grossly normal Speech and movement: Normal speech and movement present Affect: normal affect Results Reviewed Results Reviewed: Name: Betzaida Oliveira Age/Sex: 83/F : 1940 Unit#: [id number] Attend Dr: Bettina Mckinney MD Re11/01/24 Status: DEP REF [facility] Disch: SPEC : [id number] AVIVA: 11/01/24 STATUS: COMP REQ : [id number] RECD: 11/01/[address]: Bettina Mckinney MD COMP: 11/01/24 ENTERED: 11/01/[address] [facility] [address]: ORDERED: Met Prof Fast, AST, ALT, Lipid Panel, Free T4, TSH Test Result Flag Reference Sodium 139 135-145 mmol/L Potassium 3.9 3.3-5.1 mmol/L CL 104 96-108 mmol/L CO2 28 22-29 mmol/L Gap 11 L 12-20 BUN 16 9-16 mg/dL Creat 0.73 0.5-1.4 mg/dL eGFR > 60 Chronic Kidney Disease: Estimated GFR < 60 mL/min/1.73m2 Severe Kidney Disease: Estimated GFR < 15 mL/min/1.73m2 FBS 102 H 60-99 mg/dL A fasting glucose from 100-125 mg/dl is considered impaired (pre-diabetes). CA 9.6 # 8.4-10.2 mg/dL AST (GOT) 28 5-31 U/L ALT (GPT) 21 0-31 U/L Triglyceride 92 <150 mg/dL Desirable Triglyceride: less than 150 mg/dL Borderline High Triglyceride 150-199 mg/dL High Triglyceride: 200-499 mg/dL Very High Triglyceride: greater than or equal to 5OO mg/dL Cholesterol 203 H <200 mg/dL Desirable Cholesterol: less than 200 mg/dL Borderline High Cholesterol: 200-239 mg/dL High Cholesterol: greater than 239 mg/dL LDL Calculated 101 H <100 mg/dL Desirable LDL: less than 100 mg/dL Near Optimal/Above Optimal LDL: 110-129 mg/dL Borderline High LDL: 130-159 mg/dL High LDL: 160-189 mg/dL Very High LDL: greater than or equal to 190 mg/dL HDL 84 >40 mg/dL Desirable HDL: greater than 40 mg/dL Note: This HDL assay may give artificially low results in patients with liver disease. Free T4 1.12 0.71-1.85 ng/dL TSH 3rd Gen. 1.68 0.32-4.0 uIU/mL TSH 3rd Generation ([facility]) Coding Level of Care Code Est Pt Prev Care >65y(74932) Diagnoses Annual visit for general adult medical examination with abnormal findings Z00.01 Generalized anxiety disorder F41.1 Essential hypertension I10 Dyslipidemia E78.5 Acquired hypothyroidism E03.9 Osteopenia of multiple sites M85.89 Additional Codes ANGELIA-7 Assessment Billing - ANGELIA-7 Assessment Tool: ANGELIA-7 Assessment 54939 ([id number]) PHQ-9 - 89300 - PHQ-9 Billing: Yes ([id number]) Assessment & Plan Assessment & Plan (1) Annual visit for general adult medical examination with abnormal findings: Code(s): Z00.01 - Encounter for general adult medical examination with abnormal findings Plan: She is up-to-date with her osteoporosis screening, the no longer gets mammograms or cervical cancer screenings. Declined vaccines. (2) Generalized anxiety disorder: Code(s): F41.1 - Generalized anxiety disorder Category: Medical Plan: Takes diazepam 2 mg at bedtime as needed (3) Essential hypertension: Code(s): I10 - Essential (primary) hypertension Category: Medical Plan: Blood pressure at goal of less than 130/80. Continue with current medication. Reinforced importance of following a low sodium diet, getting regular exercise, and lowering stress levels. (4) Dyslipidemia: Code(s): E78.5 - Hyperlipidemia, unspecified Category: Medical Plan: Fasting lipids are within normal limits, continued on rosuvastatin 10 mg daily (5) Acquired hypothyroidism: Code(s): E03.9 - Hypothyroidism, unspecified Category: Medical Plan: Continued on levothyroxine 25 mcg daily (6) Osteopenia of multiple sites: Code(s): M85.89 - Other specified disorders of bone density and structure, multiple sites Category: Medical Plan: Continue with taking cholecalciferol 50 mcg daily, take adequate calcium from dietary sources and stay active, do at least 15 minutes of weight-bearing exercise daily Medications: Refilled levothyroxine 25 mcg PO DAILY 90 caps 4RF E03.9 - Hypothyroidism, unspecified diazepam (Valium) 2 mg PO DAILY PRN 30 tabs 0RF anxiey attack rosuvastatin 10 mg PO DAILY 90 tabs 4RF raloxifene 60 mg PO DAILY 90 tabs 4RF triamterene-hydrochlorothiazid 37.5-25 mg 1 tab PO QAM 90 tabs 4RF 90 days
== END 2024-11-05 10:05 | disposition home or self-care (01) ==
LOC: HO.HMCC 08:39
PROVIDERS: PCP Internal Medicine; Visit Provider Internal Medicine
DX: Z00.01 Encounter for general adult medical examination with abnormal findings (principal); F41.1 Generalized anxiety disorder; I10 Essential (primary) hypertension; E78.5 Hyperlipidemia, unspecified; E03.9 Hypothyroidism, unspecified; M85.89 Other specified disorders of bone density and structure, multiple sites

== ENCOUNTER → 2024-11-05 08:38 | Outpatient (BNVA) | payer MEDICARE, SELFPAY | PROVIDERS: PCP Internal Medicine; Visit Provider Internal Medicine | DX: Z00.01 Encounter for general adult medical examination with abnormal findings (principal); M81.0 Age-related osteoporosis without current pathological fracture; F41.9 Anxiety disorder, unspecified; F41.1 Generalized anxiety disorder; I10 Essential (primary) hypertension; E78.5 Hyperlipidemia, unspecified; E03.9 Hypothyroidism, unspecified | CPT/HCPCS: 96127; 99397 ==